=== PATIENT | female | born 1995 | race Caucasian/White ===

== ENCOUNTER 2016-10-25 23:25 | Emergency (ER) | payer OTHER ==
[~2016-10-25] VITALS: Ht 157.5 cm; Wt 61.2 kg
[~2016-10-25 23:25] MED LIST: BCPILLS PO; MULT-506 PO
[2016-10-25 23:29] VITALS: BP 133/79; PULSE 63; TEMP 36.8; O2SAT 97; Ht 157.5 cm; Wt 61.2 kg
[2016-10-25] MEDS ORDERED: SPIR25TA PO (23:52)
[2016-10-25] MEDS ORDERED: OMEG10007 PO (23:52)
[2016-10-25] MEDS ORDERED: CYAN100020 PO (23:52)
[2016-10-25] MEDS ORDERED: MULT-580 PO (23:52)
--- NOTE | 2016-10-26 02:05 | EMERGENCY ROOM VISIT NOTE ---
History Report prepared by Mina: Rose Rousseau Under the Supervision of: Dr. Iam Miller M.D. First contact with patient: 23:38 Chief Complaint: FINGER PAIN Stated Complaint: RING STUCK ON FINGER History of Present Illness The patient is a 21 year old female who presents to the Emergency Room with complaints of an episode of finger pain starting yesterday. The patient states that she accidentally got her ring stuck on her middle finger. She reports that it has since swelled up and notes it might be from pulling on it. She states that she tried removing it with soap, Windex, and olive oil. She states that she tried to ice and elevate it all night with no relief. She currently rates her pain as a 1/10 in severity. Source of History: patient Onset: yesterday Position: finger(s) Symptom Intensity: 1/10 Quality: other (swelling) Timing: other (episode) Review of Systems See HPI for pertinent positives and negatives. A total of six systems were reviewed and were otherwise negative. 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 Surgical Problems: (1) Hx of tonsillectomy Family History No pertinent family history Social History Smoking Status: Never Smoker Marital Status: single Housing Status: lives with family Occupation Status: student Current/Historical Medications Scheduled Control Pills ( Control Pills), 1 TAB PO DAILY Cyanocobalamin (Vitamin B12), Unknown Dose PO DAILY Fish Oil ([place]-3), 1 CAP PO DAILY Multiple Vitamins W/ Minerals (Hair/Skin/Nails), 1 TAB PO DAILY Spironolactone (Aldactone), 25 MG PO DAILY Allergies Coded Allergies: No Known Allergies (Verified , ., 10/25/16) Physical Exam Vital Signs Date Time Temp Pulse Resp B/P (MAP) Pulse Ox O2 Delivery O2 Flow Rate FiO2 10/25/16 23:29 36.8 63 20 133/79 97 Room Air Physical Exam GENERAL: Awake, alert, well-appearing, in mild distress MUSCULOSKELETAL: Chest examination reveals no tenderness. The back is symmetrical on inspection without obvious abnormality. There is no CVA tenderness to palpation. No joint edema. Left hand ring finger has ring stuck and swollen. Medical Decision & Procedures Procedure Ring removal: The ring was unable to be removed without a cutter. A ring cutter was utilized to remove the ring without complication. Patient tolerated this well. The patient consented to ring being cut prior to the procedure. ED Course 2341: The patient was evaluated in room C7. A complete history and physical exam was performed. I removed the ring by cutting it. Discussed results and discharge instructions: She verbalized understanding and agreement. The patient is ready for discharge. Medical Decision The patient presented to emergency department with a ring stuck on her finger. She accidentally put it on her third finger and set of her fourth finger. She was unable to get it off despite multiple tries at home. This was cut off as above. She tolerated this well. She was discharged. She was pleased with the treatment. Impression Primary Impression: ring stuck on finger Scribe Attestation The scribe's documentation has been prepared under my direction and personally reviewed by me in its entirety. I confirm that the note above accurately reflects all work, treatment, procedures, and medical decision making performed by me. Departure Information Dispostion Home / Self-Care Referrals No Doctor, Assigned (PCP) Forms HOME CARE DOCUMENTATION FORM, IMPORTANT VISIT INFORMATION, WORK / SCHOOL INSTRUCTIONS Patient Instructions My [facility] Additional Instructions Return to the ER immediately for spreading redness, fevers, pus-like drainage, severe pain, or as needed. Tylenol or Motrin as needed for pain. Ice compresses for 20 minutes at a time as needed for swelling.
== END 2016-10-25 23:55 | disposition home or self-care (01) ==
LOC: C.EDB 23:26 → C.EDC 23:55
DX: S60.455A Superficial foreign body of left ring finger, initial encounter (principal); X58.XXXA Exposure to other specified factors, initial encounter; Z98.890 Other specified postprocedural states; Z79.899 Other long term (current) drug therapy

== ENCOUNTER 2017-11-08 01:51 | Emergency (ER) | payer BC, OTHER ==
[~2017-11-08 01:51] MED LIST changes: +CYAN100020 PO; -MULT-506 PO; +MULT-580 PO; +OMEG10007 PO; +SPIR25TA PO
[2017-11-08 02:08] VITALS: O2SAT 99
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
[2017-11-08 03:08] LABS: BLOOD UREA NITROGEN 13 mg/dl (7-18); CALCIUM 8.3 mg/dl (8.5-10.1); CARBON DIOXIDE 21 mmol/L (21-32); CREATININE 1.06 mg/dl (0.60-1.20); GLUCOSE 117 mg/dl (70-99); POTASSIUM 3.1 mmol/L (3.5-5.1); SODIUM 141 mmol/L (136-145)
[2017-11-08 08:26] VITALS: BP 113/74; PULSE 102; O2SAT 94
== END 2017-11-08 08:29 | disposition home or self-care (01) ==
LOC: C.EDB 01:52 → C.EDA 08:29
DX: F10.129 Alcohol abuse with intoxication, unspecified (principal)